=== PATIENT | male | born 1980 | race Caucasian/White ===

== ENCOUNTER 2020-12-22 13:01 | Emergency (ER) | payer OTHER ==
[~2020-12-22] VITALS: Ht 172.7 cm; Wt 87.1 kg
[2020-12-22 15:09] VITALS: BP 108/75
== END 2020-12-22 15:20 | disposition home or self-care (01) ==
LOC: ER 13:04
DX: S20.211A Contusion of right front wall of thorax, initial encounter (principal); V86.56XA Driver of dirt bike or motor/cross bike injured in nontraffic accident, initial encounter; Y93.89 Activity, other specified; Y92.89 Other specified places as the place of occurrence of the external cause; Y99.8 Other external cause status
CPT/HCPCS: 71250